=== PATIENT | female | born 1945 ===

== ENCOUNTER 2024-02-25 08:23 | Day surgery (SDC) | payer MEDICARE, OTHER ==
[~2024-02-25] VITALS: Ht 243.8 cm; Wt 71.3 kg
[~2024-02-25 08:23] MED LIST: ACULAR LS 5 ML5 ML OS; ASPIRIN E.C. 8181 MG PO; CALCIUM600 MG PO; COQ10150 MG PO; LIPITOR 10MG10 MG PO; NATURAL TEARS OS; NORVASC 5MG5 MG/TAB PO; OCUFLOX 10 ML10 ML OS; PLAQUENIL 200M200 MG PO; PRED FORTE 1 ML1 ML OS; PREDNISONE1 MG PO; PRILOSEC 20MG20 MG PO; SUPER EPA 2002000 MG PO; TENORMIN 5050 MG/TAB PO; TYLENOL EXTRA500 M1 PO; ULTRACET TABL1 UDTAB PO; VITAMIN D1000 IU PO; ZYLOPRIM 100MG100 MG PO
[2024-02-25 10:13] LABS: CALCIUM 9.7 mg/dL (8.4-10.2); CREATININE, serum 1.04 mg/dL (0.57-1.11); POTASSIUM 4.3 mEq/L (3.5-4.5)
[2024-02-25] MEDS ORDERED: ZYLOPRIM 100MG100 MG PO (10:36)
[2024-02-25] MEDS ORDERED: COZAAR 50MG50 MG/TAB PO (10:37)
[2024-02-25] MEDS ORDERED: TOPROL XL 50MG50 MG PO (10:37)
[2024-02-25] MEDS ORDERED: ELIQUIS 5MG PO (10:37)
[2024-02-25] MEDS ORDERED: KLOR-CON 1010 MEQ PO (10:38)
[2024-02-25] MEDS ORDERED: LASIX 20MG TABL20 MG PO (10:38)
[2024-02-25] MEDS ORDERED: JARDIANCE10 PO (10:39)
[2024-02-25] MEDS ORDERED: CORDARONE200 MG/TAB PO (10:40)
[2024-02-25] MEDS ORDERED: CALCIUM 600600 MG PO (10:44)
[2024-02-25] MEDS ORDERED: EPA FISH OIL1 SGL PO (10:46)
[2024-02-25] MEDS ORDERED: LIPITOR 40MG TA40 MG PO (10:47)
[2024-02-25] MEDS ORDERED: VITAMIN C500 MG PO (10:48)
[2024-02-25] MEDS ORDERED: THE MEDICINE S200 M2 PO (10:48)
[2024-02-25] MEDS ORDERED: VITAMIND3 5000 PO (10:49)
[2024-02-25] MEDS ORDERED: PHARMASSURE ZIN50 MG PO (10:50)
[2024-02-25] MEDS ORDERED: SENOKOT S 50 MG1 TAB PO (10:53)
[2024-02-25] MEDS ORDERED: ASPIRIN 81M81 MG/TA2 PO (10:53)
[2024-02-25] MEDS ORDERED: AMBIEN 5MG TABLE5 MG PO (10:54)
[2024-02-25] MEDS ORDERED: MIRTAZAPINE7.5 MG PO (10:55)
[2024-02-25] MEDS ORDERED: BENADRYL50 MG PO (10:55)
[2024-02-25] MEDS ORDERED: TYLENOL 500MG500 MG PO (10:56)
[2024-02-25] MEDS ORDERED: NS IV ONE (11:15)
[2024-02-25] MEDS ORDERED: SOTALOL IV ONE (11:15)
--- NOTE | 2024-02-25 11:39 | NUR ---
habilitation worker met with patient and , John, P# [phone], to discuss discharge planning. PCP is Dr Bess, [facility] is [facility] [place]. Patient reports her Jardiance has been expensive but she has been able to afford it. Patient explained she is on a copay program for this. Insurance is Medicare A and B and GE. DPOA-HC is on file which appoints his as primary then Rosaura Cano as secondary; however, patient reports Rosaura has . DME is walker, cane, wheelchair and stair lift. Patient reports to be independent with ADLS and John transports her to and from appointments. Patient currently has [facility] for cleaning services. Patient would like to return home at time of discharge. Patient wanted to list her son, Pilo, P# [phone] and Ricarda (daughter in law) P# [phone] as another form of contact. John had questions about other home health agencies. provided the medicare.gov list of options in their area and also the private pay list from [facility]. No further questions or concerns at this time. Discharge plan: Home
[2024-02-25 12:00] VITALS: BP 122/104; PULSE 53; TEMP 98
[2024-02-25 13:00] VITALS: BP_SYST 122
[2024-02-25 16:00] VITALS: BP 147/88; PULSE 52; TEMP 98
[2024-02-25 17:00] VITALS: BP_SYST 147
[2024-02-25 20:00] VITALS: BP 139/113; PULSE 55; TEMP 97.7
--- NOTE | 2024-02-25 20:54 | NUR ---
PT IS RESTING IN BED WATCHING TV. SHE HAS EATEN ALL OF HER DINNER. HER HAS GONE HOME FOR THE EVENING. WE DISCUSSED HER NIGHT TIME MEDICATIONS. SHE IS ALERT AND ORIENTED. SHE AMBULATES TO THE TOILET. NO COMPLAINTS AT THIS TIME. CALL BAKARI IS AT THE BEDSIDE.
[2024-02-25] MEDS ORDERED: Acetaminophen 500 MG TAB PO SCH (21:00)
[2024-02-25] MEDS ORDERED: Zolpidem 5 MG TAB PO SCH (21:00)
[2024-02-25] MEDS ORDERED: Atorvastatin 40 MG TAB PO SCH (21:00)
[2024-02-25] MEDS ORDERED: Apixaban 5 MG TABLET PO SCH (21:00)
[2024-02-26] VITALS: BP 149/65; PULSE 51
[2024-02-26 04:00] VITALS: BP 169/32; PULSE 55
[2024-02-26 04:55] LABS: CALCIUM 9.6 mg/dL (8.4-10.2); CREATININE, serum 0.94 mg/dL (0.57-1.11); MAGNESIUM 1.9 mg/dL (1.6-2.6); POTASSIUM 3.7 mEq/L (3.5-4.5)
[2024-02-26] MEDS ORDERED: Omeprazole 20 MG **** subs to Pantoprazole 40 MG PO SCH (07:00)
--- NOTE | 2024-02-26 08:10 | NUR ---
Patient awake and resting in bed, just finished breakfast. Denies any concerns or complaints at this time. VS stable. Assisted to bathroom and then requested to sit in recliner. Call light left within reach.
[2024-02-26] MEDS ORDERED: BETAPACE 120MG120 MG PO (08:17)
[2024-02-26 08:30] VITALS: BP 121/58; PULSE 58; TEMP 97.8
[2024-02-26] MEDS ORDERED: Empagliflozin 10 MG TAB PO SCH (09:00)
[2024-02-26] MEDS ORDERED: Furosemide 20 MG TAB PO SCH (09:00)
[2024-02-26] MEDS ORDERED: Sennosides/Docusate 8.6-50 MG TAB PO SCH (09:00)
[2024-02-26] MEDS ORDERED: Omega-3 Fatty Acid Esters (OTC) 1,000 MG CAP PO SCH (09:00)
[2024-02-26] MEDS ORDERED: Calcium Carbonate 500 MG TAB PO SCH (09:00)
[2024-02-26] MEDS ORDERED: Losartan 50 MG TAB PO SCH ×2 (09:00)
[2024-02-26 12:00] VITALS: BP 169/85; PULSE 54; TEMP 97.8
--- NOTE | 2024-02-26 12:51 | NUR ---
Patient's BP has been running mostly 150's-160'systolic. ELLI Camp aware and ok with this range; no new orders received at this time.
[2024-02-26] MEDS ORDERED: COZAAR100 MG PO (16:38)
[2024-02-26] MEDS ORDERED: HYGROTON 2525 MG/TAB PO (16:49)
[2024-02-26] MEDS ORDERED: SOTALOL 120 MG PO SCH (18:15)
--- NOTE | 2024-02-26 18:55 | NUR ---
Discharge packet recviewed with patient. All questions and concerns addressed at this time.
--- NOTE | 2024-02-26 19:30 | NUR ---
Two hour post dose EKG reviewed by ELLI Camp. No concerns noted and ok for discharge. Assisted patient and spouse to ER entrance. Patient alert and oriented and in no distress upon discharge.
== END 2024-02-26 19:50 | disposition home or self-care (01) ==
LOC: SDCO 08:23 → ICU 08:50 → SDCO 02-26 19:50 → ICU 02-26 19:50
PROVIDERS: Nurse Practitioner
DX: I48.0 Paroxysmal atrial fibrillation (principal); G72.9 Myopathy, unspecified; I10 Essential (primary) hypertension; I25.10 Atherosclerotic heart disease of native coronary artery without angina pectoris; Z79.82 Long term (current) use of aspirin; Z79.01 Long term (current) use of anticoagulants; Z79.899 Other long term (current) drug therapy
CPT/HCPCS: OP; A9270; C9482; J7050